=== PATIENT | male | born 1955 | race Two or more races ===

== ENCOUNTER → 2024-09-24 | Outpatient (CLI) | payer OTHER, SELFPAY ==
--- NOTE | 2024-09-24 17:00 | XR_ITS ---
Examination: MRI cervical spine without intravenous contrast Date and time of exam: September 24, 2024 1736 hrs. Indications: Neck pain radiating down the right arm beginning 2 years ago Technique: Multiple axial and sagittal sections of the cervical spine to been obtained. T2 weighted sagittal sections, TR 3, 270, TE 117 T1-weighted sagittal sections, TR 500, TE 11 T1-weighted axial sections, TR 607, TE 12, axial sections TR 18, TE 27 and T2 weighted transverse sections, TR 3920, TE 122. Findings: Comparison June 26, 2022 Cervical fusion C6-C7 with anatomic alignment Diffuse cervical disc desiccation No cervical fracture No localized enlargement cervical cord C2-C3 no disc protrusion C3-C4 mild right neural foraminal stenosis C4-C5 3 mm central disc protrusion C5-C6 4 mm right paracentral disc bulge with mild right neural foraminal stenosis C6-C7 mild left neural foraminal stenosis C7-T1 no disc protrusion Impression: Cervical fusion C6-C7 with anatomic alignment C4-5 3 mm central disc protrusion C5-C6 4 mm left eccentric disc bulge with mild right neural foraminal stenosis
== END | disposition home or self-care (01) ==
LOC: SMRI 16:44
PROVIDERS: PCP Nurse Practitioner Family; Referring Provider Nurse Practitioner Family; Visit Provider Nurse Practitioner Family
DX: M50.221 Other cervical disc displacement at C4-C5 level (principal); M48.02 Spinal stenosis, cervical region
CPT/HCPCS: 72141